=== PATIENT | male | born 1980 | race Caucasian/White ===

== ENCOUNTER 2021-05-19 13:49 | Inpatient (IN) ==
[2021-05-19 14:49] LABS: Basophils # 0.1 K/mcL (0.0-0.2); Basophils % 0.9 %; Eosinophils # 0.4 K/mcL (0.0-0.6); Eosinophils % 3.3 %; Hemoglobin 17.8 g/dL (12.9-16.9); Immature Granulocytes % 0.6 % (0-4); Lymphocytes # 2.1 K/mcL (0.6-4.6); Lymphocytes % 16.6 %; Mean Corpuscular HGB Conc 31.8 g/dL (31.6-35.5); Mean Corpuscular Hemoglobin 26.5 pg (28.0-33.3); Mean Corpuscular Volume 83.5 fL (83.0-100.0); Mean Platelet Volume 12.3 fL (9.4-12.4); Monocytes # 1.5 K/mcL (0.0-1.3); Monocytes % 11.7 %; Neutrophils # 8.4 K/mcL (1.6-8.9); Platelet Count 195 K/mcL (140-400); Red Blood Count 6.71 M/mcL (4.19-5.50); Red Cell Distribution Width 17.1 % (11.5-14.5); Segmented Neutrophils % 66.9 %; White Blood Count 12.5 K/mcL (4.3-11.1)
[2021-05-19 15:09] LABS: Calcium 9.8 mg/dL (8.6-10.3); Potassium 2.9 mEq/L (3.5-5.1)
[2021-05-19 15:44] LABS: Troponin I 0.06 ng/mL (< 0.04)
[2021-05-19] MEDS ORDERED: Aspirin 325 MG TABLET PO ONE (16:27)
[2021-05-19] MEDS ORDERED: 0.9 % Sodium Chloride 500 ML IVC ONE (16:28)
[2021-05-19 17:47] LABS: INR 1.1
[2021-05-19 17:50] LABS: Activated Partial Thrombo Time 28.6 Seconds (26.0-36.0)
[2021-05-19 18:23] LABS: Bilirubin,Urine Negative (Negative); Blood,Urine Negative (Negative); Clarity,Urine Clear (Clear); Color,Urine Yellow (Yellow); Glucose,Urine (UA) Normal (Normal); Ketones,Urine Negative (Negative); Leukocyte Esterase,Urine Negative (Negative); Nitrite,Urine Negative (Negative); Protein,Urine Trace mg/dL (Neg-Trace); Specific Gravity,Urine 1.016 (1.010-1.025)
[2021-05-19 18:36] LABS: Amphetamine Screen,Urine Negative ng/mL (Cutoff=1000); Barbiturate Screen,Urine Negative ng/mL (Cutoff=200); Benzodiazepines Screen,Urine Negative ng/mL (Cutoff=200); Cannabinoid Screen,Urine Negative ng/mL (Cutoff = 50); Cocaine Screen,Urine Negative ng/mL (Cutoff= 300); Opiate Screen,Urine Negative ng/mL (Cutoff=300); Phencyclidine Screen,Urine Negative ng/mL (Cutoff=25)
[2021-05-19 18:55] LABS: Influenza A PCR Negative (Negative); Influenza B PCR Negative (Negative); Resp. Syncytial Virus PCR Negative (Negative); SARS-CoV-2 by PCR (In House) Negative (Negative)
[2021-05-19 19:08] LABS: Albumin 4.1 g/dL (3.5-5.7); Albumin/Globulin Ratio 1.2 (1.1-2.2); Bilirubin,Direct 0.9 mg/dL (0.0-0.2); Bilirubin,Indirect 0.9 mg/dL (0.0-1.0); Bilirubin,Total 1.8 mg/dL (0.3-1.0); Globulin 3.3 g/dL (2.4-3.5); Total Protein 7.4 g/dL (6.4-8.9)
[2021-05-19] MEDS ORDERED: Acetaminophen 325 MG TABLET PO PRN (20:11)
[2021-05-19] MEDS ORDERED: Ondansetron 4 MG/2 ML VIAL IVP PRN (20:11)
[2021-05-19] MEDS ORDERED: Naloxone 0.4 MG/ML INJ IVP PRN (20:11)
[2021-05-19] MEDS ORDERED: Melatonin 3 MG TABLET PO PRN (20:11)
[2021-05-19] MEDS ORDERED: Acetylcysteine 15,000 MG in D5% in Water 250 ML IVC ONE (20:58)
[2021-05-19] MEDS ORDERED: Acetylcysteine 5,000 MG in D5% in Water 500 ML IVC ONE (22:00)
[2021-05-19] MEDS ORDERED: Perflutren Lipid Microsphere 1.3 ML in 0.9 % Sodium Chloride 8.7 ML IVP PRN (22:27)
[2021-05-19] MEDS ORDERED: methylPREDNISolone 125 MG/2 ML VIAL IVP ONE (22:27)
[2021-05-19] MEDS ORDERED: *HR* Promethazine 25 MG/ML VIAL IM PRN (22:35)
[2021-05-19 23:49] LABS: Acetaminophen < 10 mcg/mL (10-20); Salicylate < 2.5 mg/dL (15.0-30.0)
[2021-05-19 23:51] LABS: Troponin I 0.05 ng/mL (< 0.04)
[2021-05-20 00:27] LABS: Ethanol < 10 mg/dL (Less than 10); Gamma Glutamyl Transpeptidase 388 Units/L (7-64); Lipase 29 Units/L (11-82); Thyroid Stimulating Hormone 33.639 mcIU/mL (0.340-5.600)
[2021-05-20] MEDS ORDERED: 0.9 % Sodium Chloride 1,000 ML ONE (00:39)
[2021-05-20 01:27] LABS: Lactate Dehydrogenase 509 Units/L (140-271)
[2021-05-20] MEDS ORDERED: Acetylcysteine 10,000 MG in D5% in Water 1,000 ML IVC ONE (02:00)
[2021-05-20 03:14] LABS: Hepatitis B Surface Antigen Nonreactive (Nonreactive)
[2021-05-20 03:44] LABS: Hepatitis A Antibody IgM Nonreactive (Nonreactive); Hepatitis B Core IgM Nonreactive (Nonreactive)
[2021-05-20] MEDS: Ipratropium/Albuterol Neb 3 ML IH SCH ×4 (04:01→19:53)
[2021-05-20] MEDS ORDERED: D5% in Water 1,000 ML IVC PRN (04:06)
[2021-05-20] MEDS ORDERED: Dextrose Gel 15 GM/37.5 ML TUBE PO PRN ×2 (04:06)
[2021-05-20] MEDS ORDERED: *HR* Dextrose 50 % in Water (Syg) 50 ML SYRINGE IVP PRN (04:06)
[2021-05-20] MEDS: *HR* Heparin 5,000 UNIT/ML VIAL SQ SCH ×3 (05:42→21:35)
[2021-05-20 05:55] LABS: Basophils # 0.1 K/mcL (0.0-0.2); Basophils % 0.7 %; Eosinophils % 0.5 %; Hematocrit 53.7 % (37.5-50.1); Hemoglobin 17.5 g/dL (12.9-16.9); Lymphocytes # 0.9 K/mcL (0.6-4.6); Lymphocytes % 10.4 %; Mean Corpuscular HGB Conc 32.6 g/dL (31.6-35.5); Mean Corpuscular Hemoglobin 27.2 pg (28.0-33.3); Mean Corpuscular Volume 83.5 fL (83.0-100.0); Monocytes # 0.3 K/mcL (0.0-1.3); Monocytes % 3.7 %; Platelet Count 178 K/mcL (140-400); Red Blood Count 6.43 M/mcL (4.19-5.50); Red Cell Distribution Width 16.9 % (11.5-14.5); Segmented Neutrophils % 83.7 %; White Blood Count 8.4 K/mcL (4.3-11.1)
[2021-05-20 06:01] LABS: INR 1.1; Prothrombin Time 12.7 Seconds (9.4-12.1)
[2021-05-20 06:04] LABS: Activated Partial Thrombo Time 31.1 Seconds (26.0-36.0)
[2021-05-20] MEDS: Insulin LISPRO 300 UNITS/3 ML VIAL SUBQ SCH ×5 (08:19→17:16)
[2021-05-20] MEDS: carvediloL 6.25 MG TABLET PO SCH ×2 (08:27→17:17)
[2021-05-20] MEDS: Aspirin 81 MG TAB.CHEW PO SCH (08:27)
[2021-05-20] MEDS: MethylPREDNISolone 40 MG/ML VIAL IVP SCH ×3 (08:27→23:52)
[2021-05-20] MEDS: Chlorhexidine Rinse 15 ML MOUTHWASH MM SCH ×2 (08:28→21:35)
[2021-05-20 08:44] LABS: Alanine Aminotransferase 1423 Units/L (7-52); Albumin/Globulin Ratio 1.2 (1.1-2.2); Alkaline Phosphatase 137 Units/L (34-104); Aspartate Amino Transferase 816 Units/L (13-39); BUN/Creatinine Ratio 21 (6-26); Bilirubin,Total 2.3 mg/dL (0.3-1.0); Blood Urea Nitrogen 33 mg/dL (6-20); Calcium 9.4 mg/dL (8.6-10.3); Carbon Dioxide 27 mEq/L (23-29); Chloride 93 mEq/L (98-107); Cholesterol 112 mg/dL (< 200); Globulin 3.3 g/dL (2.4-3.5); Glucose 230 mg/dL (70-105); HDL Cholesterol 14 mg/dL (40-59); LDL Cholesterol,Calculated 48 mg/dL (< 100); Magnesium 2.3 mg/dL (1.6-2.6); Osmolality,Calculated 289 (280-300); Phosphorous < 1.0 mg/dL (2.7-4.5); Potassium 3.2 mEq/L (3.5-5.1); Sodium 132 mEq/L (136-145); Total Protein 7.3 g/dL (6.4-8.9); Triglycerides 249 mg/dL (< 150); eGFR For African Americans 59 (> 60); eGFR For Non-African Americans 49 (> 60)
[2021-05-20 09:31] LABS: % Iron Saturation 24 % (20-55); Ferritin 206 ng/mL (20-250); Iron 122 mcg/dL (65-175); Transferrin 361 mg/dL (203-362)
[2021-05-20] MEDS: Budesonide/Formoterol 160/4.5 1 PUFF INH IH SCH ×2 (11:11→19:54)
[2021-05-20 11:31] LABS: Hepatitis C Virus Antibody Reactive (Nonreactive)
[2021-05-20 12:00] LABS: Estimated Average Glucose 126 mg/dl
[2021-05-21] MEDS: Ipratropium/Albuterol Neb 3 ML IH SCH ×4 (03:13→20:13)
[2021-05-21] MEDS: *HR* Heparin 5,000 UNIT/ML VIAL SQ SCH ×3 (06:41→22:06)
[2021-05-21] MEDS: Budesonide/Formoterol 160/4.5 1 PUFF INH IH SCH ×2 (08:26→20:13)
[2021-05-21] MEDS: carvediloL 6.25 MG TABLET PO SCH ×2 (08:34→17:09)
[2021-05-21] MEDS: Aspirin 81 MG TAB.CHEW PO SCH (08:34)
[2021-05-21] MEDS: MethylPREDNISolone 40 MG/ML VIAL IVP SCH ×2 (08:34→17:08)
[2021-05-21] MEDS: Chlorhexidine Rinse 15 ML MOUTHWASH MM SCH ×2 (08:34→22:06)
[2021-05-21] MEDS: Insulin LISPRO 300 UNITS/3 ML VIAL SUBQ SCH ×3 (08:37→17:24)
[2021-05-21 09:17] LABS: Basophils % 0.2 %; Hematocrit 51.5 % (37.5-50.1); Hemoglobin 16.6 g/dL (12.9-16.9); Immature Granulocytes % 1.1 % (0-4); Lymphocytes # 2.1 K/mcL (0.6-4.6); Lymphocytes % 8.7 %; Mean Corpuscular HGB Conc 32.2 g/dL (31.6-35.5); Mean Corpuscular Hemoglobin 26.6 pg (28.0-33.3); Mean Corpuscular Volume 82.7 fL (83.0-100.0); Monocytes # 1.2 K/mcL (0.0-1.3); Monocytes % 4.8 %; Neutrophils # 20.8 K/mcL (1.6-8.9); Platelet Count 213 K/mcL (140-400); Red Blood Count 6.23 M/mcL (4.19-5.50); Red Cell Distribution Width 17.2 % (11.5-14.5); Segmented Neutrophils % 85.2 %
[2021-05-21 09:19] LABS: Basophils # 0.1 K/mcL (0.0-0.2); White Blood Count 24.4 K/mcL (4.3-11.1)
[2021-05-21 12:10] LABS: Albumin 3.6 g/dL (3.5-5.7); Albumin/Globulin Ratio 1.3 (1.1-2.2); Bilirubin,Direct 0.4 mg/dL (0.0-0.2); Bilirubin,Indirect 0.6 mg/dL (0.0-1.0); Calcium 9.4 mg/dL (8.6-10.3); Globulin 2.8 g/dL (2.4-3.5); Potassium 3.3 mEq/L (3.5-5.1); Total Protein 6.4 g/dL (6.4-8.9)
[2021-05-21] MEDS: 0.9 % Sodium Chloride 1,000 ML IVC SCH (17:09)
[2021-05-21] MEDS ORDERED: *HR* Dextrose 50 % in Water (Syg) 50 ML SYRINGE IVP PRN (22:07)
[2021-05-21] MEDS ORDERED: Dextrose Gel 15 GM/37.5 ML TUBE PO PRN ×2 (22:07)
[2021-05-21] MEDS ORDERED: D5% in Water 1,000 ML IVC PRN (22:07)
[2021-05-22 01:34] LABS: Basophils % 0.2 %; Hematocrit 47.2 % (37.5-50.1); Hemoglobin 15.2 g/dL (12.9-16.9); Immature Granulocytes % 1.5 % (0-4); Lymphocytes # 1.8 K/mcL (0.6-4.6); Lymphocytes % 8.9 %; Mean Corpuscular HGB Conc 32.2 g/dL (31.6-35.5); Mean Corpuscular Hemoglobin 27.3 pg (28.0-33.3); Mean Corpuscular Volume 84.7 fL (83.0-100.0); Mean Platelet Volume 12.7 fL (9.4-12.4); Monocytes # 1.1 K/mcL (0.0-1.3); Monocytes % 5.5 %; Platelet Count 198 K/mcL (140-400); Red Blood Count 5.57 M/mcL (4.19-5.50); Red Cell Distribution Width 16.9 % (11.5-14.5); Segmented Neutrophils % 83.9 %; White Blood Count 20.2 K/mcL (4.3-11.1)
[2021-05-22 02:25] LABS: Albumin 3.3 g/dL (3.5-5.7); Albumin/Globulin Ratio 1.2 (1.1-2.2); Bilirubin,Total 0.7 mg/dL (0.3-1.0); Calcium 8.7 mg/dL (8.6-10.3); Globulin 2.7 g/dL (2.4-3.5); Potassium 4.4 mEq/L (3.5-5.1)
[2021-05-22] MEDS: MethylPREDNISolone 40 MG/ML VIAL IVP SCH ×2 (03:00→10:06)
[2021-05-22] MEDS: 0.9 % Sodium Chloride 1,000 ML IVC SCH (03:21)
[2021-05-22] MEDS: Ipratropium/Albuterol Neb 3 ML IH SCH ×2 (04:00→08:17)
[2021-05-22] MEDS: *HR* Heparin 5,000 UNIT/ML VIAL SQ SCH (06:51)
[2021-05-22] MEDS: Budesonide/Formoterol 160/4.5 1 PUFF INH IH SCH (08:17)
[2021-05-22] MEDS: Aspirin 81 MG TAB.CHEW PO SCH (10:06)
[2021-05-22] MEDS: Chlorhexidine Rinse 15 ML MOUTHWASH MM SCH (10:06)
[2021-05-22] MEDS: carvediloL 6.25 MG TABLET PO SCH (10:06)
[2021-05-22] MEDS: Insulin LISPRO 300 UNITS/3 ML VIAL SUBQ SCH ×2 (10:07→12:42)
[2021-05-22 11:03] VITALS: BP 129/81; PULSE 79; TEMP 98; O2SAT 96
[2021-05-22] MEDS ORDERED: Insulin LISPRO 300 UNITS/3 ML VIAL SUBQ SCH (21:00)
[2021-05-23 09:15] LABS: Smooth Muscle Ab Titer IgG 1:40 (<1:20)
[2021-05-24 11:33] LABS: HCV Quant Interpretation DETECTED (Not Detected); HCV Quant Log 5.06 log IU/mL
[2021-05-25 04:39] LABS: Cytomegalovirus DNA (PCR) NOT DETECTED
== END 2021-05-22 15:09 | disposition home or self-care (01) | DRG 279 ==
LOC: EMEROOARM 13:49 → 3ANU 13:49
PROVIDERS: ADMIT Internal Medicine; ATTEND Internal Medicine

== ENCOUNTER 2021-08-25 11:50 | Observation (INO) ==
[2021-08-25] MEDS ORDERED: Furosemide 40 MG/4 ML VIAL IVP ONE (12:25)
[2021-08-25 12:52] LABS: VBG HCO3 25 mEq/L (21-27); VBG PCO2 43 mmHg (41-51); VBG PH 7.38 pH Units (7.32-7.42); VBG PO2 114 mmHg (25-50)
[2021-08-25 12:54] LABS: Basophils # 0.1 K/mcL (0.0-0.2); Basophils % 0.8 %; Eosinophils # 0.4 K/mcL (0.0-0.6); Eosinophils % 5.7 %; Hematocrit 46.4 % (37.5-50.1); Hemoglobin 14.7 g/dL (12.9-16.9); Immature Granulocytes % 0.5 % (0-4); Lymphocytes # 1.5 K/mcL (0.6-4.6); Lymphocytes % 18.8 %; Mean Corpuscular HGB Conc 31.7 g/dL (31.6-35.5); Mean Corpuscular Hemoglobin 26.9 pg (28.0-33.3); Mean Platelet Volume 10.7 fL (9.4-12.4); Monocytes # 0.7 K/mcL (0.0-1.3); Monocytes % 8.5 %; Neutrophils # 5.1 K/mcL (1.6-8.9); Platelet Count 184 K/mcL (140-400); Red Blood Count 5.46 M/mcL (4.19-5.50); Red Cell Distribution Width 15.2 % (11.5-14.5); Segmented Neutrophils % 65.7 %; White Blood Count 7.7 K/mcL (4.3-11.1)
[2021-08-25 13:02] LABS: INR 1.1; Prothrombin Time 11.7 Seconds (9.4-12.1)
[2021-08-25 14:13] LABS: Albumin 3.6 g/dL (3.5-5.7); Bilirubin,Total 0.5 mg/dL (0.3-1.0); Calcium 9.1 mg/dL (8.6-10.3); Globulin 3.5 g/dL (2.4-3.5); Potassium 3.5 mEq/L (3.5-5.1); Total Protein 7.1 g/dL (6.4-8.9)
[2021-08-25 14:20] LABS: Troponin I 0.03 ng/mL (< 0.04)
[2021-08-25] MEDS ORDERED: Naloxone 0.4 MG/ML INJ IVP PRN (15:41)
[2021-08-25] MEDS ORDERED: Melatonin 3 MG TABLET PO PRN (15:41)
[2021-08-25] MEDS ORDERED: Ondansetron 4 MG/2 ML VIAL IVP PRN (15:41)
[2021-08-25] MEDS ORDERED: Dextrose 4 GM Chewable Tablets PO PRN ×2 (15:44)
[2021-08-25] MEDS ORDERED: D5% in Water 1,000 ML IVC PRN (15:44)
[2021-08-25] MEDS ORDERED: *HR* Dextrose 50 % in Water (Syg) 50 ML SYRINGE IVP PRN (15:44)
[2021-08-25] MEDS: Furosemide 40 MG/4 ML VIAL IVP SCH (18:21)
[2021-08-25] MEDS: carvediloL 6.25 MG TABLET PO SCH (18:23)
[2021-08-25] MEDS: Insulin LISPRO 300 UNITS/3 ML VIAL SUBQ SCH (18:24)
[2021-08-25] MEDS: Budesonide/Formoterol 160/4.5 1 PUFF INH IH SCH (19:59)
[2021-08-25] MEDS ORDERED: Insulin LISPRO 300 UNITS/3 ML VIAL SUBQ SCH (21:00)
[2021-08-25] MEDS: Acetaminophen 325 MG TABLET PO PRN (23:10)
[2021-08-26 01:40] LABS: Hemoglobin 15.4 g/dL (12.9-16.9); Mean Corpuscular HGB Conc 32.1 g/dL (31.6-35.5); Mean Corpuscular Hemoglobin 27.1 pg (28.0-33.3); Mean Corpuscular Volume 84.5 fL (83.0-100.0); Mean Platelet Volume 10.5 fL (9.4-12.4); Platelet Count 188 K/mcL (140-400); Red Blood Count 5.68 M/mcL (4.19-5.50); Red Cell Distribution Width 15.4 % (11.5-14.5); White Blood Count 8.9 K/mcL (4.3-11.1)
[2021-08-26 01:59] LABS: Calcium 9.7 mg/dL (8.6-10.3); Magnesium 1.9 mg/dL (1.6-2.6); Potassium 3.7 mEq/L (3.5-5.1)
[2021-08-26 07:16] VITALS: BP 114/78; PULSE 85; TEMP 98.3
[2021-08-26] MEDS: Budesonide/Formoterol 160/4.5 1 PUFF INH IH SCH (09:36)
[2021-08-26] MEDS: Acetaminophen 325 MG TABLET PO PRN (09:41)
[2021-08-26] MEDS: carvediloL 6.25 MG TABLET PO SCH (09:41)
[2021-08-26] MEDS: Furosemide 40 MG/4 ML VIAL IVP SCH (09:42)
[2021-08-26 10:02] VITALS: O2SAT 93
[2021-08-26] MEDS: Insulin LISPRO 300 UNITS/3 ML VIAL SUBQ SCH (10:11)
== END 2021-08-26 11:27 | disposition left against medical advice (07) ==
LOC: EMEROOARM 11:50 → 3BNU 11:50 → SUATTDRO 16:28 → 3BNU 17:58
PROVIDERS: ADMIT Pharmacist; ATTEND Internal Medicine